=== PATIENT | male | born 1960 | race Two or more races ===

== ENCOUNTER 2016-07-17 16:24 | Emergency (ER) | payer OTHER ==
[2016-07-17 17:24] VITALS: RESP 18; O2SAT 91
[2016-07-17] MEDS ORDERED: IBUPROFEN 200 MG TAB PO ONE (17:24)
[2016-07-17] MEDS ORDERED: IOPAMIDOL (ISOVUE-300) 100 ML BTL IV ONE (17:53)
--- NOTE | 2016-07-17 18:14 | DX ---
PA and lateral chest History: Cough, fever. Comparison: PA and lateral chest August 11, 2008. Findings: Diffuse peribronchial thickening is present with right upper lobe consolidation. There is n o pneumothorax or pleural effusion. Right apical scarring and eventration of the hemidiaphragms is ag ain noted. Heart size is normal. Mild degenerative change is present in the spine. Impression: Bronchitis with right upper lobe consolidation suggesting pneumonia.
--- NOTE | 2016-07-17 18:31 | UCPHY ---
H & P Patient Type: New Chief Complaint Nursing Narrative: cough, chest congestion and fever x 4 days, slight headache Time Seen by Provider: 07/17/16 18:23 HPI/ROS: 55-year-old male presents complaining of cough, fevers chills for approximately 4 days. He denies recent travel. Review of systems General positive fevers positive chills no weakness HEENT no eye pain no eye discharge. No eye redness, no sore throat Respiratory positive cough, no shortness of breath Cardiac no chest pain, no peripheral edema GI no abdominal pain, no diarrhea, no constipation, no nausea, no vomiting no flank pain, no hematuria, no dysuria Musculoskeletal no myalgias, no joint pain Heme no easy bruising, no easy bleeding Endo no polyuria, no polydipsia Skin no rashes, no pruritus Neuro no syncope, no dizziness, no headaches Psych is no suicidal ideation, no homicidal ideation Source: Patient, Family - Personal History Current Tetanus/Diphtheria Vaccine: Yes - Medical/Surgical History Hx Asthma: No Hx Chronic Respiratory Disease: No Hx Diabetes: No Hx Cardiac Disease: No Hx Renal Disease: No Hx Cirrhosis: No Hx Alcoholism: No Hx HIV/AIDS: No Hx Splenectomy or Spleen Trauma: No Other PMH: back surgery - Family History Significant Family History: No pertinent family hx - Social History Smoking Status: Never smoked Alcohol Use: None Drug Use: None - Physical Exam Exam: 55-year-old male, tachycardic, febrile, alert HEENT atraumatic normocephalic, extraocular muscles intact, anicteric Oropharynx negative for erythema negative exudate, tolerating her own secretions Neck supple no meningismus Lungs clear to auscultation bilaterally, scattered rhonchi Heart rapid rate regular rhythm without murmur rub or gallop Abdomen nondistended normoactive bowel sounds soft nontender Back no CVA tenderness, no step-offs, no spinal tenderness Extremities no cyanosis clubbing or edema Neuro alert and oriented, no focal deficits Constitutional: Initial Vital Signs Temperature (C) 37.4 C 07/17/16 17:21 Heart Rate 135 H 07/17/16 17:21 Respiratory Rate 18 07/17/16 17:21 Blood Pressure 167/61 H 07/17/16 17:21 O2 Sat (%) 91 L 07/17/16 17:21 O2 Delivery Mode Room Air Allergies/Adverse Reactions: No Known Allergies Allergy (Unverified 07/17/16 17:21) Home Medications: Medication Instructions Recorded Guaifenesin/Codeine Phosphate 15 ml PO Q6 PRN #240 ml 07/17/16 [Codeine-Guaifen 10-100 mg/5 ml] levOFLOXACIN [Levaquin] 500 mg PO DAILY #10 tablet 07/17/16 Medical Decision Making - Diagnostics Imaging: Chest x-ray positive right upper lobe infiltrate ED Course/Re-evaluation: Patient seen and evaluated for cough fevers and chills Influenza negative CBC with elevated white blood cell count Chest x-ray positive right upper lobe infiltrate Lactate elevated Patient given 2 L IV normal saline for hydration Patient given Levaquin 500 mg IV piggyback to cover community-acquired pneumonia Impression Pneumonia, lobar, community-acquired Plan Home on Levaquin 500 mg daily times 10 days Patient advised to follow up with a primary care physician - Data Points Laboratory Results: Laboratory Results 07/17/16 18:45 07/17/16 18:45 07/17/16 18:45 WBC 18.76 H 10^3/uL (3.80-9.50) RBC 6.35 10^6/uL (4.40-6.38) Hgb 12.6 L g/dL (13.7-17.5) Hct 38.3 L % (40.0-51.0) MCV 60.3 L fL (81.5-99.8) MCH 19.8 L pg (27.9-34.1) MCHC 32.9 g/dL (32.4-36.7) RDW 15.9 H % (11.5-15.2) Plt Count 208 10^3/uL (150-400) MPV 10.3 fL (8.7-11.7) Neut % (Auto) Not Reported Lymph % (Auto) Not Reported [place] % (Auto) Not Reported Eos % (Auto) Not Reported Baso % (Auto) Not Reported Nucleat RBC Rel Count 0.1 % (0.0-0.2) Absolute Neuts (auto) Not Reported Absolute Lymphs (auto) Not Reported Absolute Monos (auto) Not Reported Absolute Eos (auto) Not Reported Absolute Basos (auto) Not Reported Absolute Nucleated RBC 0.02 H 10^3/uL (0-0.01) Immature Gran % Not Reported Seg Neutrophils % 59 % Band Neutrophils % 32 % Lymphocytes % 4 % Monocytes % 5 % Immature Gran # Not Reported Absolute Seg Neuts 11.1 H K/MM3 (1.8-7) Absolute Band Neuts 6.0 H K/MM3 (0-0.7) Absolute Lymphocytes 0.8 L K/mm3 (1.0-4.8) Absolute Monocytes 0.9 H K/mm3 (0-0.8) Platelet Estimate ADEQUATE (ADEQ) Hypochromasia 1+ H Microcytic Cells 3+ H Smear Review By Pending VBG Lactic Acid 2.6 H mmol/L (0.7-2.1) Sodium 135 mEq/L (134-144) Potassium 3.8 mEq/L (3.5-5.2) Chloride 98 mEq/L (97-110) Carbon Dioxide 24 mEq/l (22-31) Anion Gap 13 mEq/L (8-16) BUN 19 mg/dL (7-23) Creatinine 1.0 mg/dL (0.7-1.3) Estimated GFR > 60 Glucose 137 H mg/dL (70-100) Calcium 9.2 mg/dL (8.5-10.4) Total Bilirubin 2.6 H mg/dL (0.1-1.4) Conjugated Bilirubin 0.4 mg/dL (0.0-0.5) Unconjugated Bilirubin 2.2 H mg/dL (0.0-1.1) AST 27 IU/L (17-59) ALT 22 IU/L (21-72) Alkaline Phosphatase 61 IU/L (38-126) Total Protein 7.7 g/dL (6.3-8.2) Albumin 4.0 g/dL (3.5-5.0) Influenza Typ A,B (DFA) NEGATIVE FOR FLU (NEGATIVE) Medications Given: Discontinued Medications Sodium Chloride (Ns) 1,000 mls @ 0 mls/hr IV ONCE ONE PRN Reason: Wide Open Stop: 07/17/16 18:42 Last Admin: 07/17/16 19:02 Dose: 1,000 mls Levofloxacin/Dextrose (Levaquin 500 Mg (Premix)) 100 mls @ 100 mls/hr IV EDNOW ONE PRN Reason: Protocol Stop: 07/17/16 20:01 Last Admin: 07/17/16 19:00 Dose: 100 mls Sodium Chloride (Ns) 1,000 mls @ 0 mls/hr IV ONCE ONE PRN Reason: Wide Open Stop: 07/17/16 19:33 Last Admin: 07/17/16 19:38 Dose: 1,000 mls Ibuprofen (Motrin) 400 mg PO EDNOW ONE Stop: 07/17/16 17:25 Last Admin: 07/17/16 17:26 Dose: 400 mg Departure - Departure Disposition: Home, Routine, Self-Care Clinical Impression: Pneumonia Condition: Good Instructions: Bacterial Pneumonia (ED) Referrals: NONE *PRIMARY CARE P,. [Primary Care Provider] - As per Instructions [facility] [Provider Group] - As per Instructions Stand Alone Forms: Work Excuse Prescriptions: Guaifenesin/Codeine Phosphate [Codeine-Guaifen 10-100 mg/5 ml] 15 ml PO Q6 PRN # 240 ml PRN Reason: Cough, Severe levOFLOXACIN [Levaquin] 500 mg PO DAILY #10 tablet - PQRS PQRS Measurement: na
[2016-07-17] MEDS ORDERED: NS 1,000 ML IV ONE ×2 (18:41→19:32)
[2016-07-17] MEDS ORDERED: levOFLOXACIN 500 MG/DEXTROSE 100 ML IV ONE (19:02)
[2016-07-17 19:11] LABS: ABSOLUTE NRBC COUNT 0.02 10^3/uL (0-0.01); ATYPICAL LYMPHOCYTE FLAG 0 (0-99); FRAGMENT RBC FLAG 20 (0-99); HEMATOCRIT 38.3 % (40.0-51.0); HEMOGLOBIN 12.6 g/dL (13.7-17.5); LIPEMIA HEMOLYSIS FLAG 80 (0-99); MEAN CELL HEMOGLOBIN 19.8 pg (27.9-34.1); MEAN CELL HEMOGLOBIN CONCENTR. 32.9 g/dL (32.4-36.7); MEAN PLATELET VOLUME 10.3 fL (8.7-11.7); NRBC-AUTO% 0.1 % (0.0-0.2); PLATELET CLUMPS FLAG 20 (0-99); PLATELET COUNT 208 10^3/uL (150-400); RED BLOOD CELL COUNT 6.35 10^6/uL (4.40-6.38); RED CELL DISTRIBUTION WIDTH 15.9 % (11.5-15.2)
[2016-07-17 19:13] LABS: ADD DIFF? YES; LEFT SHIFT FLG 140 (0-99); MEAN CELL VOLUME 60.3 fL (81.5-99.8)
[2016-07-17 19:14] LABS: ADD MORPH? NO; ADD SCAN? NO
[2016-07-17 19:20] LABS: ALANINE AMINOTRANSFERASE 22 IU/L (21-72); ALKALINE PHOSPHATASE 61 IU/L (38-126); ANION GAP 13 mEq/L (8-16); ASPARTATE AMINOTRANSFERASE 27 IU/L (17-59); BILIRUBIN,TOTAL 2.6 mg/dL (0.1-1.4); CALCIUM 9.2 mg/dL (8.5-10.4); CARBON DIOXIDE 24 mEq/l (22-31); CHLORIDE 98 mEq/L (97-110); GLOMERULAR FILTRATION RATE > 60; GLUCOSE 137 mg/dL (70-100); POTASSIUM 3.8 mEq/L (3.5-5.2); SODIUM 135 mEq/L (134-144); TOTAL PROTEIN 7.7 g/dL (6.3-8.2)
[2016-07-17 19:32] LABS: BILIRUBIN-CONJUGATED 0.4 mg/dL (0.0-0.5); BILIRUBIN-UNCONJUGATED 2.2 mg/dL (0.0-1.1)
[2016-07-17 20:17] LABS: MICROCYTES 3+; PLATELET ESTIMATE ADEQUATE (ADEQ)
[2016-07-17 20:18] LABS: HYPOCHROMIA 1+
[2016-07-17 20:27] VITALS: BP 108/72; PULSE 88; TEMP 99
== END 2016-07-17 20:55 | disposition home or self-care (01) ==
LOC: CED 16:24
DX: J18.1 Lobar pneumonia, unspecified organism (principal)
CPT/HCPCS: 71020-PO; 80053-PO; 82248-PO; 83605-PO; 85025-PO; 87400-PO; 99205-PO; J1956; Q9967